=== PATIENT | male | born 1965 | race Caucasian/White ===

== ENCOUNTER 2017-10-21 18:27 | Emergency (ER) | payer MEDICARE, MEDICAID, SELFPAY ==
--- NOTE | 2017-10-21 18:43 | ED.DCSUM_ITS ---
- ER Visit Summary Date of Service: 10/21/17 Chief Complaint: Full arrest History of Present Illness: The patient is a 52 M presenting with EMS with cardiopulmonary arrest. Per family, patient was in a verbal argument. He became unresponsive. Bystander CPR was performed for 15 minutes. EMS arrived. CPR was continued. IO was placed. He was given epi ?3 and bicarb ?1. He remained in asystole. He was shocked ?1 while in asystole. No response to medications. On arrival CPR in progress. Physical Examination: Bagged respirations, No pulse. HEENT exam is fixed dilated pupils Neck is supple. Lungs are equal with bagging. Heart no cardiac activity Abdomen is soft distended. Extremities are unremarkable. Skin is warm and dry. Comatose Remainder of exam is unremarkable. Emergency Department Course and Treatment: ACLS was continued. He was given epi ?3, bicarb ?1. Bedside ultrasound shows no cardiac activity. At this time his down time is estimated to be over 45 minutes. He was pronounced with family at bedside. Disposition: Impression: Cardiopulmonary arrest This note was generated with [employer] dictation software. It may contain incorrect words, spelling, and punctuation that were not noted in review of the chart prior to signing ED Disposition - Plan for ED Patient: Chief Complaint: CPR Referrals: Benita Spears [Primary Care Provider] -
[2017-10-21 19:17] VITALS: BMI 38.7
--- NOTE | 2017-10-21 20:44 | ED.RN ---
paperwork faxed to [facility] at this time
--- NOTE | 2017-10-21 21:15 | ED.RN ---
body to the morgue at this time
--- NOTE | 2017-10-21 21:30 | ED.RN ---
body released from [facility] at this time
== END 2017-10-21 21:20 ==
PROVIDERS: Emergency Provider Emergency Medicine; Family Provider Internal Medicine Infectious Disease; PCP Internal Medicine Infectious Disease
DX: I46.9 Cardiac arrest, cause unspecified (principal); F79 Unspecified intellectual disabilities
CPT/HCPCS: 92950; 99291